=== PATIENT | female | born 1985 | race Caucasian/White ===

== ENCOUNTER 2022-04-18 10:59 | Emergency (ER) | payer MEDICAID ==
[~2022-04-18] VITALS: Ht 160 cm; Wt 59.0 kg
[2022-04-18 11:45] VITALS: BP 130/70
--- NOTE | 2022-04-18 11:45 | NUR ---
PT WAS EVALUATED BY DR CROOK. PT WAS D/C 'd TO HOME. D/C INSTRUCTIONS GIVEN TO THE PT BY DR CROOK.
== END 2022-04-18 11:46 | disposition home or self-care (01) ==
LOC: ER 10:59
DX: N76.0 Acute vaginitis (principal); B96.89 Other specified bacterial agents as the cause of diseases classified elsewhere
CPT/HCPCS: A4663